=== PATIENT | female | born 1975 | race Caucasian/White ===

== ENCOUNTER 2020-07-14 22:03 | Inpatient (IN) | payer BC, OTHER ==
[~2020-07-14] VITALS: Ht 160 cm; Wt 92.5 kg
[2020-07-14 23:19] LABS: HEMOGLOBIN 13.1 gm/dl (12.3-15.3); RED BLOOD COUNT 4.48 M/UL (4.00-5.10)
[2020-07-14 23:44] LABS: BUN/CREATININE RATIO 21 (0-10)
[2020-07-15] MEDS ORDERED: CLARITIN 10MG T10 MG PO (00:50)
[2020-07-15] MEDS ORDERED: MONTELUKAST SOD10 MG PO (00:51)
[2020-07-15] MEDS ORDERED: IBU800 MG PO (00:52)
[2020-07-15] MEDS ORDERED: FUROSEMIDE20 MG PO (00:52)
[2020-07-15] MEDS ORDERED: CREON DR 6,0001 EACH PO (00:53)
[2020-07-15] MEDS ORDERED: SERTRALINE HCL100 MG PO (00:53)
[2020-07-15] MEDS ORDERED: OMEPRAZOLE40 MG PO (00:54)
[2020-07-15] MEDS ORDERED: METOPROLOL TART25 MG PO (00:55)
[2020-07-15] MEDS ORDERED: RIZATRIPTAN10 MG PO (00:57)
--- NOTE | 2020-07-15 11:36 | NUR ---
gone to [place] a this time noted
[2020-07-16 03:00] LABS: HEMOGLOBIN 11.3 gm/dl (12.3-15.3); WHITE BLOOD COUNT 9.3 K/UL (4.5-11.0)
[2020-07-16 03:04] LABS: RED BLOOD COUNT 4.01 M/UL (4.00-5.10)
[2020-07-16 03:23] LABS: BUN/CREATININE RATIO 22 (0-10)
[2020-07-16] MEDS ORDERED: ZOFRAN4 MG PO (10:57)
[2020-07-16] MEDS ORDERED: DIFLUCAN150 MG PO (10:57)
[2020-07-16] MEDS ORDERED: ENOXAPARIN40 MG/0.4 SC (10:57)
[2020-07-16] MEDS ORDERED: PERCOCET 7.5-31 EACH PO ×2 (10:57→17:31)
== END 2020-07-16 17:38 | disposition home health service (06) | DRG 494 ==
LOC: ER1 22:03 → M/S 23:18 → ER1 07-15 00:35 → M/S 07-16 17:38
PROVIDERS: Emergency Medicine; Orthopaedic Surgery; ADMIT Internal Medicine
PROC: 0QSH04Z Reposition Left Tibia with Internal Fixation Device, Open Approach (ICD-10-PCS; 2020-07-15)
PROC: 0SSG04Z Reposition Left Ankle Joint with Internal Fixation Device, Open Approach (ICD-10-PCS; 2020-07-15)
PROC: 0QSK04Z Reposition Left Fibula with Internal Fixation Device, Open Approach (ICD-10-PCS; principal; 2020-07-15 12:00)
DX: S82.852A Displaced trimalleolar fracture of left lower leg, initial encounter for closed fracture (principal); W00.0XXA Fall on same level due to ice and snow, initial encounter; R77.8 Other specified abnormalities of plasma proteins; K76.0 Fatty (change of) liver, not elsewhere classified; E66.01 Morbid (severe) obesity due to excess calories; Z20.822 Contact with and (suspected) exposure to COVID-19; F41.9 Anxiety disorder, unspecified; J30.9 Allergic rhinitis, unspecified; Z90.49 Acquired absence of other specified parts of digestive tract; Z87.891 Personal history of nicotine dependence; Y93.9 Activity, unspecified; Z90.710 Acquired absence of both cervix and uterus; Z88.2 Allergy status to sulfonamides; Y92.008 Other place in unspecified non-institutional (private) residence as the place of occurrence of the external cause; Z82.49 Family history of ischemic heart disease and other diseases of the circulatory system; Z79.899 Other long term (current) drug therapy; Z68.37 Body mass index [BMI] 37.0-37.9, adult
CPT/HCPCS: ECHO; 36415; 71045; 73600; 73610; 73700; 76000; 80048; 80053; 82550; 82553; 84484; 85025; 85027; 85610; 85730; 93005; 93306; 96374; 96375; 97161; 99285; C1713; J0690; J1100; J1650; J2001; J2250; J2270; J2405; J2704; J2710; J2765; J2795; J3010; J7120; U0002

== ENCOUNTER → 2021-03-01 | Outpatient (CLI) | payer BC ==
[~2021-03-01] MED LIST: BUTALB-ACETAMI1 EAC1 PO; CALCIUM500 MG PO; CLARITIN 10MG T10 MG PO; CREON DR 6,0001 EACH PO; DIFLUCAN150 MG PO; ENOXAPARIN40 MG/0.4 SC; FUROSEMIDE20 MG PO; IBU800 MG PO; METOPROLOL TART25 MG PO; MONTELUKAST SOD10 MG PO; OMEPRAZOLE40 MG PO; PERCOCET 7.5-31 EACH PO; RIZATRIPTAN10 MG PO; SERTRALINE HCL100 MG PO; VITAMIN D325 MC6 PO; ZOFRAN4 MG PO
[2021-03-01 09:14] LABS: BUN/CREATININE RATIO 17 (0-10)
== END ==
LOC: OPSV2 08:00
PROVIDERS: Orthopaedic Surgery
DX: Z01.818 Encounter for other preprocedural examination (principal); S82.892D Other fracture of left lower leg, subsequent encounter for closed fracture with routine healing; R94.31 Abnormal electrocardiogram [ECG] [EKG]
CPT/HCPCS: 36415; 80048; 93005

== ENCOUNTER → 2021-03-06 | Day surgery (SDC) | payer BC ==
[~2021-03-06] VITALS: Ht 162.6 cm; Wt 93.0 kg
== END | disposition home or self-care (01) ==
LOC: OR 05:16
DX: Z47.2 Encounter for removal of internal fixation device (principal); K21.9 Gastro-esophageal reflux disease without esophagitis; G43.909 Migraine, unspecified, not intractable, without status migrainosus; F41.9 Anxiety disorder, unspecified; Z88.2 Allergy status to sulfonamides; Z79.899 Other long term (current) drug therapy
CPT/HCPCS: J0690; J1100; J1170; J1885; J2250; J2405; J2704; J3010; J7120

== ENCOUNTER → 2021-11-21 | Outpatient (CLI) | payer BC | LOC: KOH-I 15:21 | DX: J18.1 Lobar pneumonia, unspecified organism (principal) | CPT/HCPCS: 71250 ==